=== PATIENT | male | born 1935 | race Caucasian/White ===

== ENCOUNTER 2021-12-31 14:14 | Observation (INO) | payer MEDICARE, SELFPAY ==
[2021-12-31] VITALS (7 sets, daily range): BP systolic 162–209; BP diastolic 66–94; PULSE 65–95; RESP 12–23; TEMP 35.7–36.9; O2SAT 95–98; BMI 25.4; BMI 25.7
--- NOTE | ~2021-12-31 | XR_ITS ---
EXAMINATION: XR CHEST CLINICAL INFORMATION: Cough. COMPARISON: 01/03/2018 chest radiographs. TECHNIQUE: Frontal view of the chest was obtained. FINDINGS: No significant abnormality is noted involving the heart, lungs, mediastinum, bony thorax or soft tissues. XR/XR chest 1V IMPRESSION: No acute cardiopulmonary process.
--- NOTE | ~2021-12-31 | CT_ITS ---
EXAMINATION: CT ANGIOGRAM NECK WITH CONTRAST CT ANGIOGRAM BRAIN WITH CONTRAST CLINICAL INFORMATION: Evaluate aphasia, possible stroke. Carotid stenosis. COMPARISON: Brain MRI 12/31/2021. TECHNIQUE: Test bolus sequences followed by intravenous administration 70 mL of Omnipaque 350. Helical imaging was performed in the axial plane from the thoracic inlet to the skull vertex. Delayed postcontrast imaging of the head was also performed. The data was processed at the electroencephalogram technologist workstation for generation of MIP sequences. Angled MIPs and volume rendered reformatted images were also generated at an offline 3D workstation under concurrent supervision. Stenoses are assessed in accordance with NASCET criteria unless otherwise indicated. This CT examination was performed using dose optimization techniques as appropriate, variously including the following: *Automated exposure control *Adjustment of mA and/or kV according to patient size (this includes techniques or standardized protocols for targeted exams where dose is matched to indication/reason for exam; i.e. extremities or head) *Use of iterative reconstruction technique FINDINGS: BRAIN: Redemonstrated global cerebral volume loss, chronic microangiopathy, and extensive chronic infarcts throughout the left cerebral hemisphere including the deep watershed zone.[There is no intracranial hemorrhage, hydrocephalus, extra-axial surface collection, midline shift, or other herniation pattern. Perez to white matter differentiation is diffusely maintained without evidence of an evolved acute territorial infarct. The basilar cisterns are preserved. No significant soft tissue abnormality. No acute osseous abnormality. The paranasal sinuses and the mastoid air cells are well aerated.] CERVICAL SOFT TISSUES AND LUNG APICES: There is multilevel cervical spondylosis. NECK CTA: [There is a classic 3 vessel configuration of the aortic arch. Proximal arch vessels are non-stenotic. The vertebral arteries are codominant. No significant ostial stenosis is visualized on either side. Both vertebral arteries are widely patent throughout their extracranial cervical course. Both common carotid arteries are normal in course and caliber.] There is atherosclerotic calcification involving the right carotid bifurcation that along with lipid rich atherosclerotic plaque results in a less than 50% stenosis of the proximal right internal carotid artery. Lipid rich and calcific atherosclerotic plaque results in a less than 50% stenosis of the proximal left internal carotid artery. There is a broad-based 4 mm penetrating atherosclerotic ulcer along the posterior medial aspect of the left carotid bulb. BRAIN CTA: Atherosclerotic calcification results in moderate stenoses of the intradural vertebral arteries bilaterally. Atherosclerotic calcification throughout the carotid siphons bilaterally without significant stenosis. Moderate to severe stenosis at the origin of one of the right MCA post bifurcation divisions. No focal flow-limiting stenosis nor discrete proximal large artery occlusion. No aneurysm. Timing of the contrast bolus allows assessment of the major dural venous sinuses, which all opacify normally] CT/CT angio head neck IMPRESSION: - No acute findings. Redemonstrated global cerebral volume loss, chronic microangiopathy, and extensive chronic infarcts throughout the left cerebral hemisphere including the deep watershed zone. - No acute arterial occlusions intracranially. - Moderate to severe stenosis at the origin of one of the right MCA post bifurcation divisions. - Lipid rich and calcific atherosclerotic plaque results in a less than 50% stenosis of the proximal left internal carotid artery. 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 - There is atherosclerotic calcification involving the right carotid bifurcation that along with lipid rich atherosclerotic plaque results in a less than 50% stenosis of the proximal right internal carotid artery. - Atherosclerotic calcification results in moderate stenoses of the intradural vertebral arteries bilaterally.
--- NOTE | ~2021-12-31 | MR_ITS ---
MRI OF THE BRAIN WITHOUT IV CONTRAST INDICATION: Broca's aphasia. COMPARISON: Head CT 12/31/2021. Brain MRI 01/03/2018. TECHNIQUE: Multiplanar multisequence MR imaging of the brain was obtained without IV contrast. FINDINGS: Progressive chronic infarcts throughout the left cerebral hemisphere including the deep watershed zone. There is background moderate chronic microangiopathy. There is no hydrocephalus, extra-axial surface collection, or herniation. The major flow voids at the skull base are preserved. There is no acute infarct on diffusion-weighted imaging. There is a focus of chronic hemosiderin staining within the left hebert. No adjacent edema to suggest acute hemorrhage. There is also chronic hemosiderin staining within the left occipital lobe. The midline structures are normal. The cerebellar tonsils are normally positioned. The cerebellum and brainstem are normal. The craniocervical junction is normal. Osseous marrow signal intensity is homogenous. The visualized soft tissues are unremarkable. MR/MR head/brain wo con IMPRESSION: - No acute intracranial findings. No acute infarcts. - Progressive chronic infarcts throughout the left cerebral hemisphere including the deep watershed zone. There is background moderate chronic microangiopathy. - There is a focus of chronic hemosiderin staining within the left hebert. No adjacent edema to suggest acute hemorrhage. There is also chronic hemosiderin staining within the left occipital lobe.
--- NOTE | ~2021-12-31 | CT_ITS ---
EXAMINATION: CT HEAD WITHOUT CONTRAST (STROKE PROTOCOL) CLINICAL INFORMATION: Stroke protocol. Slurred speech COMPARISON: Previous head CT and brain MRI December 2018 TECHNIQUE: Contiguous axial imaging was performed from the skull base to vertex without intravenous administration of contrast. This CT examination was performed using dose optimization techniques as appropriate, variously including the following: *Automated exposure control *Adjustment of mA and/or kV according to patient size (this includes techniques or standardized protocols for targeted exams where dose is matched to indication/reason for exam; i.e. extremities or head) *Use of iterative reconstruction technique DLP: 860 mGy-cm FINDINGS: There is no evidence of an extra-axial collection. There is no evidence of intra-axial or extra-axial hemorrhage. The ventricles and extra-axial CSF spaces are prominent. There is nonspecific periventricular white matter disease. There are multiple subcortical and periventricular white matter infarcts in the left posterior parietal, occipital and frontal lobes. These are new in the interval from December 2017 are indeterminate age. There may be left external capsule lacunar infarcts probably unchanged. No mass or mass effect is seen. No skull fracture is seen. There is evidence of atherosclerotic disease. There are inflammatory changes in the maxillary sinuses. CT/CT head for stroke IMPRESSION: Generalized atrophy and nonspecific periventricular white matter disease. Multiple age indeterminate left-sided infarcts in the left posterior parietal, occipital and frontal lobes. This critical result was discussed with Dr. Cannon at 14 55 hours on 12/31/2021. It was ascertained that the content and urgency of the report was understood at the time of direct communication.
--- NOTE | 2021-12-31 14:37 | ECG_ITS ---
Test Reason : ?STROKE Blood Pressure : / mmHG Vent. Rate : 083 BPM Atrial Rate : 083 BPM P-R Int : 178 ms QRS Dur : 148 ms QT Int : 408 ms P-R-T Axes : 030 060 003 degrees QTc Int : 479 ms Normal sinus rhythm Right bundle branch block Abnormal ECG When compared to the previous EKG of No significant changes seen Referred By: Alvina Cannon Electronically Signed By:Keyon Lee
[2021-12-31 15:01] LABS: Glucose, Whole Blood 184 mg/dL (60-115)
[2021-12-31 15:07] LABS: Basophils Percent Auto 0.2 % (0-2); Eosinophils Percent Auto 0.2 % (0-4); Hematocrit 41.1 % (42.0-52.0); Hemoglobin 13.4 g/dl (14.0-18.0); Imm Gran Abs Auto 0.08 X10*3/uL (0.00-0.03); Imm Gran Pct Auto 1.9 % (0.0-0.4); Lymphocytes Absolute Auto 1.5 X10*3/uL (1.2-4.9); Lymphocytes Percent Auto 33.8 % (20-40); MANUAL DIFF FLAG SCAN; Mean Corpuscular HGB Conc 32.6 g/dl (31.0-36.0); Mean Corpuscular Hemoglobin 33.3 pg (27.0-33.0); Mean Corpuscular Volume 102.2 fL (80.0-98.0); Monocytes Percent Auto 23.6 % (2-11); Neutrophils Absolute Auto 1.7 x10*3/uL (2.0-8.3); Neutrophils Percent Auto 40.3 % (45-73); Platelet Count 105 X10*3/uL (160-400); Red Blood Count 4.02 X10*6/uL (4.60-5.80); Red Cell Distribution Width 11.9 % (11.0-16.0); SCAN SMEAR FLAG 1; White Blood Count 4.3 X10*3/uL (4.8-10.8)
[2021-12-31 15:08] LABS: Prothrombin Time Whole Bld POC 11.7 sec (11.1-13.5)
[2021-12-31 15:19] LABS: Anion Gap 14 (12-20); Blood Urea Nitrogen 17 mg/dL (9-16); Calcium 9.9 mg/dL (8.4-10.2); Carbon Dioxide 28 mmol/L (22-29); Chloride 108 mmol/L (96-108); Creatinine Clr Calc Pharmacy 67.2; Estimated Glomerular Filt Rate > 60; Glucose Random 161 mg/dL (60-115); Potassium 4.6 mmol/L (3.3-5.1); Sodium 145 mmol/L (135-145)
[2021-12-31 15:27] LABS: SLIDE REVIEW VERIFIED; Troponin-I High Sensitivity 11.8 ng/L (<3.5-35.0)
--- NOTE | 2021-12-31 15:32 | ED.NEUROSD ---
HPI - Neuro Symptoms/Deficit General Chief Complaint: Neuro Symptoms/Deficit Stated Complaint: slurred speech/ possible stroke Time Seen by Provider: 12/31/21 14:37 History of Present Illness HPI Narrative: Patient is a 86-year-old male presents today at approximately 12:30 with having sudden onset of difficulty finding the right word. Patient denies any fever chills. No focal weakness no changes in vision. No nausea no vomiting. Positive history of [place] in the past. Positive history of hypertension. Not on blood thinners. Not on Coumadin on Xarelto non Eliquis. Patient stated that his thinking was not quite right for peer to time. Sent into the emergency department for further evaluation. Related Data Home Medications Medication Instructions Recorded Confirmed clopidogrel 75 mg tablet 1 tab PO DAILY 12/31/21 lisinopril 5 mg tablet tab PO 12/31/21 simvastatin 40 mg tablet 1 tab PO BEDTIME 12/31/21 12/31/21 trazodone 50 mg tablet 2 tab PO BEDTIME PRN 12/31/21 Allergies Allergy/AdvReac Type Severity Reaction Status Date / Time No Known Allergies Allergy Unverified 05/14/20 19:29 [No Known Allergies*] Review of Systems Review of Systems: No fever no chills no chest pain or shortness of breath no nausea no vomiting Yes all other systems are reviewed and are negative PMFSH Past Medical History Attestation statement: The following information was validated with the patient. Social History Social History Alcohol intake: current Alcohol intake frequency: 0-2 drinks per day Alcohol type: wine and hard liquor Patient Tobacco Use Status: Never used Tobacco Use of substances other than those prescribed or required for medical reasons: No Advance Directives: No Advance Directives Information Provided: No Physical Exam Vital Signs: Vital Signs: Last Vital Signs Temp 98.5 F 12/31/21 15: Pulse 81 12/31/21 15:26 Resp 23 H 12/31/21 15:26 BP 168/77 H 12/31/21 15:26 Pulse Ox 95 12/31/21 15:26 BMI result Body Mass Index 25.7 Appearance: Alert. Oriented X3. No acute distress. Eyes: Pupils equal, round and reactive to light. ENT: Pharynx normal. Neck: Normal inspection. Neck supple. No lymph nodes noted. No crepitus CVS: Normal heart rate and rhythm. Pulses normal. Normal S1 and S2 Respiratory: No respiratory distress. Breath sounds normal. No Wheezing. No rales Abdomen: Soft and nontender. No rigidity. No distention. good BS x4 Skin: Skin warm and dry. Normal skin color. Normal skin turgor. Extremities: No lower extremity edema. Neurovascular intact to all extremities. No Lacerations. No Rash Neuro: Oriented X 3. No motor deficit. No sensory deficit. Moving all extermities. No slurred speech MDM - Neuro Symptoms/Deficit MDM Narrative Medical decision making narrative: CT scan of the head was grossly negative for any acute evidence of bleeding. Electrolytes unremarkable. Patient presented today with having dysarthria. The symptoms seems have persisted for last 2-1/2 hours. There is no gross visual changes. Patient NIH stroke scale was 0. Ambulated with a normal gait. Discussed with neurology agreed patient's deficit not roberto a CTA at this time. Patient to be admitted aspirin started. In stable condition. Lab Data Attestation: I reviewed the patient's lab results. Result diagrams: 12/31/21 15:02 12/31/21 15:02 Labs: Lab Results 12/31/21 12/31/21 12/31/21 Range/Units 14:45 14:46 15:02 WBC 4.3 L (4.8-10.8) X10*3/uL RBC 4.02 L (4.60-5.80) X10*6/uL Hgb 13.4 L (14.0-18.0) g/dl Hct 41.1 L (42.0-52.0) % MCV 102.2 H (80.0-98.0) fL MCH 33.3 H (27.0-33.0) pg MCHC 32.6 (31.0-36.0) g/dl RDW 11.9 (11.0-16.0) % Plt Count 105 L (160-400) X10*3/uL MPV 13.0 H (9.4-12.4) fL Immature Gran % (Auto) 1.9 H (0.0-0.4) % Neut % (Auto) 40.3 L (45-73) % Lymph % (Auto) 33.8 (20-40) % [place] % (Auto) 23.6 H (2-11) % Eos % (Auto) 0.2 (0-4) % Baso % (Auto) 0.2 (0-2) % Lymph # (Auto) 1.5 (1.2-4.9) X10*3/uL [place] # (Auto) 1.0 (0.1-1.2) X10*3/uL Eos # (Auto) 0.0 (0.0-0.4) X10*3/uL Baso # (Auto) 0.0 (0.0-0.2) X10*3/uL Abs Immat Gran (auto) 0.08 H (0.00-0.03) X10*3/uL Absolute Neuts (auto) 1.7 L (2.0-8.3) x10*3/uL Absolute Nucleated RBC 0.000 (0.0-0.012) X10*3/uL Nucleated RBC % (auto) 0.0 (0.0-0.2) /100WBC Smear Tech's Comments VERIFIED PT (9.9-13.0) SEC Whole Blood PT 11.7 (11.1-13.5) sec INR (0.9-1.1) Whole Blood INR 1.0 (0.9-1.1) Sodium (135-145) mmol/L Potassium (3.3-5.1) mmol/L Chloride (96-108) mmol/L Carbon Dioxide (22-29) mmol/L Anion Gap (12-20) BUN (9-16) mg/dL Creatinine (0.5-1.4) mg/dL Estim Creat Clear Calc Estimated GFR POC Glucose 184 H (60-115) mg/dL Random Glucose (60-115) mg/dL Calcium (8.4-10.2) mg/dL Troponin I High Sens (<3.5-35.0) ng/L Hold Red Top 12/31/21 12/31/21 12/31/21 Range/Units 15:02 15:02 15:02 WBC (4.8-10.8) X10*3/uL RBC (4.60-5.80) X10*6/uL Hgb (14.0-18.0) g/dl Hct (42.0-52.0) % MCV (80.0-98.0) fL MCH (27.0-33.0) pg MCHC (31.0-36.0) g/dl RDW (11.0-16.0) % Plt Count (160-400) X10*3/uL MPV (9.4-12.4) fL Immature Gran % (Auto) (0.0-0.4) % Neut % (Auto) (45-73) % Lymph % (Auto) (20-40) % [place] % (Auto) (2-11) % Eos % (Auto) (0-4) % Baso % (Auto) (0-2) % Lymph # (Auto) (1.2-4.9) X10*3/uL [place] # (Auto) (0.1-1.2) X10*3/uL Eos # (Auto) (0.0-0.4) X10*3/uL Baso # (Auto) (0.0-0.2) X10*3/uL Abs Immat Gran (auto) (0.00-0.03) X10*3/uL Absolute Neuts (auto) (2.0-8.3) x10*3/uL Absolute Nucleated RBC (0.0-0.012) X10*3/uL Nucleated RBC % (auto) (0.0-0.2) /100WBC Smear Tech's Comments PT 11.7 (9.9-13.0) SEC Whole Blood PT (11.1-13.5) sec INR 1.0 (0.9-1.1) Whole Blood INR (0.9-1.1) Sodium 145 (135-145) mmol/L Potassium 4.6 (3.3-5.1) mmol/L Chloride 108 (96-108) mmol/L Carbon Dioxide 28 (22-29) mmol/L Anion Gap 14 (12-20) BUN 17 H (9-16) mg/dL Creatinine 0.84 (0.5-1.4) mg/dL Estim Creat Clear Calc 67.2 Estimated GFR > 60 POC Glucose (60-115) mg/dL Random Glucose 161 H (60-115) mg/dL Calcium 9.9 (8.4-10.2) mg/dL Troponin I High Sens 11.8 (<3.5-35.0) ng/L Hold Red Top 12/31/21 Range/Units 15:02 WBC (4.8-10.8) X10*3/uL RBC (4.60-5.80) X10*6/uL Hgb (14.0-18.0) g/dl Hct (42.0-52.0) % MCV (80.0-98.0) fL MCH (27.0-33.0) pg MCHC (31.0-36.0) g/dl RDW (11.0-16.0) % Plt Count (160-400) X10*3/uL MPV (9.4-12.4) fL Immature Gran % (Auto) (0.0-0.4) % Neut % (Auto) (45-73) % Lymph % (Auto) (20-40) % [place] % (Auto) (2-11) % Eos % (Auto) (0-4) % Baso % (Auto) (0-2) % Lymph # (Auto) (1.2-4.9) X10*3/uL [place] # (Auto) (0.1-1.2) X10*3/uL Eos # (Auto) (0.0-0.4) X10*3/uL Baso # (Auto) (0.0-0.2) X10*3/uL Abs Immat Gran (auto) (0.00-0.03) X10*3/uL Absolute Neuts (auto) (2.0-8.3) x10*3/uL Absolute Nucleated RBC (0.0-0.012) X10*3/uL Nucleated RBC % (auto) (0.0-0.2) /100WBC Smear Tech's Comments PT (9.9-13.0) SEC Whole Blood PT (11.1-13.5) sec INR (0.9-1.1) Whole Blood INR (0.9-1.1) Sodium (135-145) mmol/L Potassium (3.3-5.1) mmol/L Chloride (96-108) mmol/L Carbon Dioxide (22-29) mmol/L Anion Gap (12-20) BUN (9-16) mg/dL Creatinine (0.5-1.4) mg/dL Estim Creat Clear Calc Estimated GFR POC Glucose (60-115) mg/dL Random Glucose (60-115) mg/dL Calcium (8.4-10.2) mg/dL Troponin I High Sens (<3.5-35.0) ng/L Hold Red Top See Note NIH Stroke Scale Internal: 24 hours post onset of symptoms within 20 min Time: 15:25 Level of Consciousness: Alert Level of Consciousness Questions: Answers both questions correctly Level of Consciousness Commands: Performs both tasks correctly Best Gaze: Normal Visual: No visual loss Facial Palsy: Normal Motor Arm (Right): No drift Motor Arm (Left): No drift Motor Leg (Right): No drift Motor Leg (Left): No drift Limb Ataxia: Absent Sensory: Normal Best Language: No aphasia Dysarthia: Normal Extinction and Inattention: No abnormality Score: 0 Discharge Plan Discharge Clinical Impression: Cerebrovascular accident Patient Disposition: Admitted As Inpatient Prescriptions: No Action trazodone 50 mg tablet 2 tab PO BEDTIME PRN (Reason: Sleep) 0RF clopidogrel 75 mg tablet 1 tab PO DAILY 0RF simvastatin 40 mg tablet 1 tab PO BEDTIME 0RF lisinopril 5 mg tablet PO 0RF
[2021-12-31 15:33] LABS: Prothrombin Time 11.7 SEC (9.9-13.0)
[2021-12-31 15:39] LABS: Stroke Lab Use COMPLETE
--- NOTE | 2021-12-31 15:41 | PC.NURSE ---
Patient's brother Kota would like to be called with update [phone]
[2021-12-31] MEDS: Aspirin 81 MG TAB.CHEW 324 MG PO (15:46)
--- NOTE | 2021-12-31 15:53 | P.HPHOSP_ITS ---
History of Present Illness Date of Service: 12/31/21 Chief Complaint: Speech problem An 86 years old male with PMH of hypertension, CAD, history of stroke who presents to the hospital complaining of difficulty speech this afternoon. The patient reported taking up in the morning having breakfast which he had diff iculties naming what he had at that time. Noticed around 12 30 sudden onset of difficulty finding the right word and understanding some words. The patient denies fever, chills, weakness, change in vision, dizziness, gait problem or weakness in any part of his body. He was evaluated by emergency for possible stroke but his NIH score of less than 5. ER provider Decided not to give any tPA after counseling with neurologist on-call. Admitted for further evaluation and treatment. Review of Systems Review of Systems: No fever, chills or weakness No chest pain, palpitation No shortness of breath or coughing No abdominal pain, nausea or vomiting No urinary symptoms No any rash or wounds aphasia PMFSH Medical History (Updated 12/31/21 @ 16:13 by Rosenda Diaz MD) CAD (coronary artery disease) History of stroke HTN (hypertension) Social History Alcohol intake: current Alcohol intake frequency: 0-2 drinks per day Alcohol type: wine and hard liquor Patient Tobacco Use Status: Never used Tobacco Use of substances other than those prescribed or required for medical reasons: No Advance Directives: No Advance Directives Information Provided: No Meds Allergies Allergy/AdvReac Type Severity Reaction Status Date / Time No Known Allergies Allergy Unverified 05/14/20 19:29 [No Known Allergies*] Active Medications: Current Medications Acetaminophen (Acetaminophen 325 Mg Tablet) 650 mg PO Q6H PRN PRN Reason: Pain, Mild (Pain Scale 1-3) Enoxaparin Sodium (Enoxaparin Sodium 40 Mg/0.4 Ml Syringe) 40 mg SUBCUT Q24H ZANE Ondansetron HCl (Ondansetron Hcl 4 Mg/2 Ml Vial) 4 mg IVPUSH Q8H PRN PRN Reason: Nausea and Vomiting Pharmacy Consult (Consult Rx Perform Med Rec) 1 each MISCELLANE ONCE PRN PRN Reason: Consult order Sodium Chloride (0.9 % Sodium Chloride Flush 3 Ml Syringe) 3 ml IVFLUSH QSHIFT [facility] Home Medications Medication Instructions Recorded Confirmed Last Taken Type acetaminophen 325 mg tablet 650 mg PO Q6H PRN 12/31/21 12/31/21 Unknown History cholecalciferol (vitamin D3) 25 25 mcg PO DAILY 12/31/21 12/31/21 12/31/21 History mcg (1,000 unit) tablet clopidogrel 75 mg tablet 1 tab PO BEDTIME 12/31/21 12/31/21 12/30/21 History lisinopril 5 mg tablet 1 tab PO DAILY 12/31/21 12/31/21 12/30/21 History multivitamin 1 tab PO DAILY 12/31/21 12/31/21 12/31/21 History simvastatin 40 mg tablet 1 tab PO BEDTIME 12/31/21 12/31/21 12/30/21 History trazodone 50 mg tablet 0.5 - 1 tab PO BEDTIME PRN 12/31/21 12/31/21 Unknown History Physical Exam Vital Signs and Narrative: Vital Signs: Last Vital Signs Temp 98.5 F 12/31/21 15:26 Pulse 81 12/31/21 15:30 Resp 12 12/31/21 15:30 BP 171/71 H 12/31/21 15:30 Pulse Ox 96 12/31/21 15:30 BMI result Body Mass Index 25.7 Const: Other: Constitutional : Alert, oriented, mildly stressed out Neck : Normal inspection, Supple Cardiovascular : RRR, no JVP, no lower extremity edema Respiratory : fair bilateral air entry, no crackles, wheezes or rhonchi Gastrointestinal: soft, lax, Normal bowel sounds, Non tender Skin : Warm, Dry Neurological : Alert & oriented x3, No focal deficit , CN 2-12 within normal, difficulties finding some words but overall able to speak with fluency and good content Results Labs CBC and Chem 7: 12/31/21 15:02 12/31/21 15:02 Labs: Laboratory Results - last 24 hr 12/31/21 12/31/21 12/31/21 14:45 14:46 15:02 MCV 102.2 H MCH 33.3 H MCHC 32.6 RDW 11.9 Plt Count 105 L MPV 13.0 H Immature Gran % (Auto) 1.9 H Neut % (Auto) 40.3 L Lymph % (Auto) 33.8 [place] % (Auto) 23.6 H Eos % (Auto) 0.2 Baso % (Auto) 0.2 Lymph # (Auto) 1.5 [place] # (Auto) 1.0 Eos # (Auto) 0.0 Baso # (Auto) 0.0 Abs Immat Gran (auto) 0.08 H Absolute Neuts (auto) 1.7 L Absolute Nucleated RBC 0.000 Nucleated RBC % (auto) 0.0 Smear Tech's Comments VERIFIED PT Whole Blood PT 11.7 INR Whole Blood INR 1.0 Anion Gap Estim Creat Clear Calc Estimated GFR POC Glucose 184 H Random Glucose Calcium Troponin I High Sens Hold Red Top 12/31/21 12/31/21 12/31/21 15:02 15:02 15:02 MCV MCH MCHC RDW Plt Count MPV Immature Gran % (Auto) Neut % (Auto) Lymph % (Auto) [place] % (Auto) Eos % (Auto) Baso % (Auto) Lymph # (Auto) [place] # (Auto) Eos # (Auto) Baso # (Auto) Abs Immat Gran (auto) Absolute Neuts (auto) Absolute Nucleated RBC Nucleated RBC % (auto) Smear Tech's Comments PT 11.7 Whole Blood PT INR 1.0 Whole Blood INR Anion Gap 14 Estim Creat Clear Calc 67.2 Estimated GFR > 60 POC Glucose Random Glucose 161 H Calcium 9.9 Troponin I High Sens 11.8 Hold Red Top 12/31/21 15:02 MCV MCH MCHC RDW Plt Count MPV Immature Gran % (Auto) Neut % (Auto) Lymph % (Auto) [place] % (Auto) Eos % (Auto) Baso % (Auto) Lymph # (Auto) [place] # (Auto) Eos # (Auto) Baso # (Auto) Abs Immat Gran (auto) Absolute Neuts (auto) Absolute Nucleated RBC Nucleated RBC % (auto) Smear Tech's Comments PT Whole Blood PT INR Whole Blood INR Anion Gap Estim Creat Clear Calc Estimated GFR POC Glucose Random Glucose Calcium Troponin I High Sens Hold Red Top See Note Imaging Radiologist's Impressions: Impressions Head CT 12/31/21 14:42 IMPRESSION: Generalized atrophy and nonspecific periventricular white matter disease. Multiple age indeterminate left-sided infarcts in the left posterior parietal, occipital and frontal lobes. This critical result was discussed with Dr. Cannon at 14 55 hours on 12/31/2021. It was ascertained that the content and urgency of the report was understood at the time of direct communication. Chest X-Ray 12/31/21 15:17 IMPRESSION: No acute cardiopulmonary process. Assessment and Plan (1) Expressive aphasia: Status: Acute Plan An 86 years old male with PMH of hypertension, CAD, history of stroke who presents to the hospital complaining of difficulty speech this afternoon. Expressive aphasia Could be secondary to stroke VS TIA VS seizure CT negative for any acute findings To do CTA to assess reported stenosis in the carotid in 2019 Check MRI for stroke Received full-dose ASA in the emergency next [place] continue with atorvastatin and home does Plavix Neuro checks Get Neurology evaluation Speech and PT therapy Might need an EEG or a trial of Keppra. CAD continue statin and Plavix HTN Will allow permissive hypertension for now continue home dose lisinopril DVT PPX Lovenox Quality Stroke Does the patient have a stroke diagnosis?: No VTE Prior VTE?: No VTE Risk Level:: Medical - moderate - high VTE Device Contraindication: Treatment Not Indicated VTE Drug Contraindication: N/A - Med Ordered
--- NOTE | 2021-12-31 15:59 | PHA.MEDREC ---
Pharmacy Consult ? Medication Reconciliation Pharmacy has completed the medication reconciliation. Pt had written list in [employer], [facility] claim history. Renata ConnollyD
--- NOTE | 2021-12-31 17:19 | MHC.SLORD ---
Speech Language Pathology Order Status: Patient seen for language screening at bedside in ED. 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 Strongly recommend speech therapy during inpatient stay M-F and at next level of care.
[2021-12-31 17:31] LABS: COVID-19 Test Positive (Negative); IDNOW Serial# 16C4AD1C
[2021-12-31 20:00] LABS: Glucose, Whole Blood 139 mg/dL (60-115)
[2021-12-31] MEDS: iohexoL 350 MG/ML 100 ML INFUS..BTL IV (20:29)
[2021-12-31] MEDS: hydrALAZINE HCl 20 MG/ML VIAL 5 MG IVPUSH (20:49)
[2021-12-31] MEDS: Enoxaparin Sodium 40 MG/0.4 ML SYRINGE SUBCUT (20:50)
[2021-12-31] MEDS: Atorvastatin Calcium 80 MG TABLET PO (20:51)
[2021-12-31] MEDS: Clopidogrel Bisulfate 75 MG TABLET PO (20:52)
[2021-12-31] MEDS: 0.9 % Sodium Chloride Flush 3 ML SYRINGE IVFLUSH (20:52)
[2022-01-01] VITALS: BP 199/89; PULSE 66; RESP 20; TEMP 37; O2SAT 98
[2022-01-01] MEDS: hydrALAZINE HCl 20 MG/ML VIAL 5 MG IVPUSH (01:36)
[2022-01-01 03:30] VITALS: BP 157/74; PULSE 65; RESP 16; TEMP 37.3; O2SAT 96
[2022-01-01 07:15] LABS: Anion Gap 13 (12-20); Blood Urea Nitrogen 11 mg/dL (9-16); Carbon Dioxide 23 mmol/L (22-29); Chloride 105 mmol/L (96-108); Creatinine Clr Calc Pharmacy 79.5; Estimated Glomerular Filt Rate > 60; Glucose Random 136 mg/dL (60-115); Potassium 4.1 mmol/L (3.3-5.1); Sodium 137 mmol/L (135-145)
[2022-01-01 07:49] VITALS: BP 189/83; PULSE 64; RESP 20; TEMP 36.9; O2SAT 96
[2022-01-01 09:31] LABS: Cholesterol 127 mg/dL; HDL Cholesterol 48 mg/dL; LDL Cholesterol Calculated 63 mg/dl; Triglycerides 80 mg/dL
[2022-01-01] MEDS: 0.9 % Sodium Chloride Flush 3 ML SYRINGE IVFLUSH (09:52)
[2022-01-01] MEDS: Cholecalciferol (Vitamin D3) 25 MCG TABLET PO (10:29)
[2022-01-01] MEDS: Multivitamin TABLET 1 TAB PO (10:30)
[2022-01-01] MEDS: Aspirin Enteric Coated 81 MG TABLET.DR PO (10:30)
[2022-01-01] MEDS: amLODIPine Besylate 5 MG TABLET PO (10:30)
[2022-01-01] MEDS: lisinopriL 10 MG TABLET PO (10:30)
[2022-01-01 11:47] VITALS: BP 183/82; PULSE 67; RESP 20; TEMP 36.4; O2SAT 99
[2022-01-01] MEDS: levETIRAcetam 250 MG TABLET PO (13:35)
--- NOTE | 2022-01-01 14:08 | PM.NEUROCN ---
History of Present Illness Data of Consult Service Date: 01/01/22 Primary Care Provider: Unknown Physician HPI Reason for consult: Aphasia and confusion 86 years old man with past medical history of large left middle cerebral artery infarct in 2018 that was treated with intravenous tPA. Even then he had significant encephalomalacia and left middle cerebral artery territory. No obvious embolic source was noted and he was being treated with Plavix. This time he was here with new complaint of difficulty speaking. He said that his speech was gibberish or like word salad but also he was quite confused. This state lasted for few hours. In emergency room he was noted to have mild such symptoms but because of relatively mild nature of symptoms intravenous tPA was not considered. Now he was back to baseline. There was no headache. Review of Systems Review of Systems: No recent cold or flu-like illness. ON LICENSE OF [facility] Past Medical History Medical History CAD (coronary artery disease) History of stroke HTN (hypertension) Social History Social History Alcohol intake: current Alcohol intake frequency: 0-2 drinks per day Alcohol type: wine and hard liquor Patient Tobacco Use Status: Never used Tobacco Meds Allergies Allergy/AdvReac Type Severity Reaction Status Date / Time No Known Allergies Allergy Unverified 05/14/20 19:29 [No Known Allergies*] Active Medications: Current Medications Acetaminophen (Acetaminophen 325 Mg Tablet) 650 mg PO Q6H PRN PRN Reason: Pain, Mild (Pain Scale 1-3) Amlodipine Besylate (Amlodipine Besylate 5 Mg Tablet) 5 mg PO DAILY [facility]; Protocol Last Admin: 01/01/22 10:30 Dose: 5 mg Documented by: Aspirin (Aspirin Enteric Coated 81 Mg Tablet.) 81 mg PO DAILY [facility] Last Admin: 01/01/22 10:30 Dose: 81 mg Documented by: Atorvastatin Calcium (Atorvastatin Calcium 80 Mg Tablet) 80 mg PO BEDTIME ZANE Last Admin: 12/31/21 20:51 Dose: 80 mg Documented by: Enoxaparin Sodium (Enoxaparin Sodium 40 Mg/0.4 Ml Syringe) 40 mg SUBCUT Q24H ZANE Last Admin: 12/31/21 20:50 Dose: 40 mg Documented by: Levetiracetam (Levetiracetam 250 Mg Tablet) 250 mg PO BID [facility] Last Admin: 01/01/22 13:35 Dose: 250 mg Documented by: Lisinopril (Lisinopril 10 Mg Tablet) 10 mg PO DAILY [facility]; Protocol Last Admin: 01/01/22 10:30 Dose: 10 mg Documented by: Multivitamins/Vitamin C (Multivitamin Tablet) 1 tab PO DAILY [facility] Last Admin: 01/01/22 10:30 Dose: 1 tab Documented by: Ondansetron HCl (Ondansetron Hcl 4 Mg/2 Ml Vial) 4 mg IVPUSH Q8H PRN PRN Reason: Nausea and Vomiting Pharmacy Consult (Consult Rx Perform Med Rec) 1 each MISCELLANE ONCE PRN PRN Reason: Consult order Sodium Chloride (0.9 % Sodium Chloride Flush 3 Ml Syringe) 3 ml IVFLUSH QSHIFT [facility] Last Admin: 01/01/22 09:52 Dose: 3 ml Documented by: Vitamin D (Cholecalciferol (Vitamin D3) 25 Mcg Tablet) 25 mcg PO DAILY [facility] Last Admin: 01/01/22 10:29 Dose: 25 mcg Documented by: Home Medications Medication Instructions Recorded Confirmed Last Taken Type acetaminophen 325 mg tablet 650 mg PO Q6H PRN 12/31/21 12/31/21 Unknown History cholecalciferol (vitamin D3) 25 25 mcg PO DAILY 12/31/21 12/31/21 12/31/21 History mcg (1,000 unit) tablet clopidogrel 75 mg tablet 1 tab PO BEDTIME 12/31/21 12/31/21 12/30/21 History lisinopril 5 mg tablet 1 tab PO DAILY 12/31/21 12/31/21 12/30/21 History multivitamin 1 tab PO DAILY 12/31/21 12/31/21 12/31/21 History simvastatin 40 mg tablet 1 tab PO BEDTIME 12/31/21 12/31/21 12/30/21 History trazodone 50 mg tablet 0.5 - 1 tab PO BEDTIME PRN 12/31/21 12/31/21 Unknown History Physical Exam Vital Signs: Vital Signs: Last Vital Signs Temp 97.6 F 01/01/22 11:47 Pulse 67 01/01/22 11:47 Resp 20 01/01/22 11:47 BP 183/82 H 01/01/22 11:47 Pulse Ox 99 01/01/22 11:47 BMI result Body Mass Index 25.7 Neuro: Other: He was alert and awake with normal spontaneity of speech fluency comprehension and affect. He was able to name and repeat. Face was symmetrical. There was no pronator drift. Khurer-gl-ozbe testing was normal. Visual higginbotham are full. Affect was normal. He was COVID positive and exam was limited. Results Labs CBC & Chem 7: 12/31/21 15:02 01/01/22 06:42 Labs: Short CBC 12/31/21 Range/Units 15:02 WBC 4.3 L (4.8-10.8) X10*3/uL Hgb 13.4 L (14.0-18.0) g/dl Hct 41.1 L (42.0-52.0) % Plt Count 105 L (160-400) X10*3/uL BMP 12/31/21 01/01/22 15:02 06:42 Sodium 145 137 Potassium 4.6 4.1 Chloride 108 105 Carbon Dioxide 28 23 BUN 17 H 11 Creatinine 0.84 0.71 Calcium 9.9 9.0 D MRI of brain did not reveal any acute lesions. Large area of left middle cerebral artery chronic ischemic infarction was noted with moderate to severe microvascular ischemic changes and moderate to severe diffuse atrophy. Assessment and Plan (1) Expressive aphasia: Status: Acute Overall clinical impression is suggestive of either a stroke or seizure disorder. Despite the fact that his symptoms lasted many hours, no acute lesion was noted on MRI. I suggest to obtain an EEG and continue Plavix at this time. Procedures Date of Service Date of Service: 01/01/22
--- NOTE | 2022-01-01 15:26 | PM.DS ---
DS: Providers Provider Date of Service: 01/01/22 Date of admission: 12/31/21 15:48 Primary care physician: Unknown Physician Consults: 12/31/21 15:43 Consult to Neurology Routine Consulting Provider: [facility] Reason for consultation: expressive aphasia for your kind eval DS: Diagnosis Discharge Diagnosis (1) Anomic aphasia: Status: Acute (2) Cerebrovascular accident: Status: Acute (3) HTN (hypertension): Status: Acute DS: Summary Hospital Course Hospital Course: Admission note HPI An 86 years old male with PMH of hypertension, CAD, history of stroke who presents to the hospital complaining of difficulty speech this afternoon.? The patient reported taking up in the morning having breakfast which he had difficulties naming what he had at that time.? Noticed around 12 30 sudden onset of difficulty finding the right word and understanding some words.? The patient denies fever, chills, weakness, change in vision, dizziness, gait problem or weakness in any part of his body. He was evaluated by emergency for possible stroke but his NIH score of less than 5.? ER provider Decided not to give any tPA after counseling with neurologist on-call.? Admitted for further evaluation and treatment. Hospital course The patient was admitted for evaluation of difficulty speaking. Diagnosed as anomic aphasia. CT head, CTA and MRI were all negative for any acute findings. MRI does showed an evidence of extensive progressive left hemisphere microangiopathy. Evaluated by neurologist who recommended to continue Plavix and to follow-up as outpatient for EEG to rule out possible seizure activity. The patient received full dose of aspirin at the day of admission with changing his cholesterol medication to atorvastatin. Seen by speech and physical therapy. Patient was noted to have significantly elevated blood pressure readings that were left mildly elevated to allow permissive hypertension. Started on amlodipine and higher dose of lisinopril for better control of blood pressures. To follow-up with Neurology as outpatient, Dr. Murillo, call the office for an appointment. Start amlodipine 5 mg daily Increase lisinopril to 10 mg daily Monitor your blood pressure at home with to readings a day for the next week. Review readings with PCP for further adjustments. To repeat blood work next week. Time Spent with Patient Time attestation: Total time spent providing and/or coordinating discharge services: Discharge coordination time: Greater than 30 minutes Quality: Safe Use of Opioids Does Pt have an Active Cancer Diagnosis on the Problem List?: No Quality: Stroke Does the patient have a stroke diagnosis?: No Physical Exam Vital Signs: Vital Signs: Last Vital Signs Temp 97.6 F 01/01/22 11:47 Pulse 67 01/01/22 11:47 Resp 20 01/01/22 11:47 BP 183/82 H 01/01/22 11:47 Pulse Ox 99 01/01/22 11:47 BMI result Body Mass Index 25.7 Const: Other: Constitutional : Alert, oriented, mildly stressed out Neck : Normal inspection, Supple Cardiovascular : RRR, no JVP, no lower extremity edema Respiratory : fair bilateral air entry, no crackles, wheezes or rhonchi Gastrointestinal: soft, lax, Normal bowel sounds, Non tender Skin : Warm, Dry Neurological : Alert & oriented x3, No focal deficit , CN 2-12 within normal, able to speak with fluency and good content with no problems with repetition or naming DS: Data Data Completed and Pending Labs on day of discharge: Laboratory Results - last 24 hr 12/31/21 12/31/21 12/31/21 15:02 15:02 15:02 WBC 4.3 L RBC 4.02 L Hgb 13.4 L Hct 41.1 L MCV 102.2 H MCH 33.3 H MCHC 32.6 RDW 11.9 Plt Count 105 L MPV 13.0 H Immature Gran % (Auto) 1.9 H Neut % (Auto) 40.3 L Lymph % (Auto) 33.8 Chester % (Auto) 23.6 H Eos % (Auto) 0.2 Baso % (Auto) 0.2 Lymph # (Auto) 1.5 Chester # (Auto) 1.0 Eos # (Auto) 0.0 Baso # (Auto) 0.0 Abs Immat Gran (auto) 0.08 H Absolute Neuts (auto) 1.7 L Absolute Nucleated RBC 0.000 Nucleated RBC % (auto) 0.0 Smear Tech's Comments VERIFIED PT 11.7 INR 1.0 Sodium Potassium Chloride Carbon Dioxide Anion Gap BUN Creatinine Estim Creat Clear Calc Estimated GFR POC Glucose Random Glucose Calcium Troponin I High Sens 11.8 Triglycerides Cholesterol LDL Cholesterol, Calc HDL Cholesterol COVID-19 ([facility]) COVID-19 Clin Com 12/31/21 12/31/21 01/01/22 17:17 19:56 06:42 WBC RBC Hgb Hct MCV MCH MCHC RDW Plt Count MPV Immature Gran % (Auto) Neut % (Auto) Lymph % (Auto) Chester % (Auto) Eos % (Auto) Baso % (Auto) Lymph # (Auto) Chester # (Auto) Eos # (Auto) Baso # (Auto) Abs Immat Gran (auto) Absolute Neuts (auto) Absolute Nucleated RBC Nucleated RBC % (auto) Smear Tech's Comments PT INR Sodium 137 Potassium 4.1 Chloride 105 Carbon Dioxide 23 Anion Gap 13 BUN 11 Creatinine 0.71 Estim Creat Clear Calc 79.5 Estimated GFR > 60 POC Glucose 139 H Random Glucose 136 H Calcium 9.0 D Troponin I High Sens Triglycerides 80 Cholesterol 127 LDL Cholesterol, Calc 63 HDL Cholesterol 48 COVID-19 ([facility]) Positive A COVID-19 Clin Com See Note Imaging MRI - head: Radiologist's impression: ITS Impressions Head CT 12/31/21 14:42 IMPRESSION: Generalized atrophy and nonspecific periventricular white matter disease. Multiple age indeterminate left-sided infarcts in the left posterior parietal, occipital and frontal lobes. This critical result was discussed with Dr. Cannon at 14 55 hours on 12/31/2021. It was ascertained that the content and urgency of the report was understood at the time of direct communication. Chest X-Ray 12/31/21 15:17 IMPRESSION: No acute cardiopulmonary process. Brain MRI 12/31/21 18:15 IMPRESSION: - No acute intracranial findings. No acute infarcts. - Progressive chronic infarcts throughout the left cerebral hemisphere including the deep watershed zone. There is background moderate chronic microangiopathy. - There is a focus of chronic hemosiderin staining within the left hebert. No adjacent edema to suggest acute hemorrhage. There is also chronic hemosiderin staining within the left occipital lobe. Head/Neck CTA 12/31/21 20:46 IMPRESSION: - No acute findings. Redemonstrated global cerebral volume loss, chronic microangiopathy, and extensive chronic infarcts throughout the left cerebral hemisphere including the deep watershed zone. - No acute arterial occlusions intracranially. - Moderate to severe stenosis at the origin of one of the right MCA post bifurcation divisions. - Lipid rich and calcific atherosclerotic plaque results in a less than 50% stenosis of the proximal left internal carotid artery. 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 - There is atherosclerotic calcification involving the right carotid bifurcation that along with lipid rich atherosclerotic plaque results in a less than 50% stenosis of the proximal right internal carotid artery. - Atherosclerotic calcification results in moderate stenoses of the intradural vertebral arteries bilaterally. Discharge Plan Discharge Patient Disposition: Home, Self-Care Discharge Diagnosis: Aphasia, Transient ischemic attack Referrals: Physician,Unknown J [Primary Care Provider] - 1 Week Discharge Medications: New atorvastatin 80 mg Tablet 80 mg PO BEDTIME 30 Days Qty: 30 0RF amlodipine 5 mg Tablet 5 mg PO DAILY 30 Days Qty: 30 0RF Protocol: Hold for SBP< HOLD for SBP < : 90 Continued trazodone 50 mg tablet 0.5 - 1 tab PO BEDTIME PRN (Reason: Sleep) 0RF clopidogrel 75 mg tablet 1 tab PO BEDTIME 0RF multivitamin Tablet 1 tab PO DAILY 0RF acetaminophen 325 mg Tablet 650 mg PO Q6H PRN (Reason: Pain) 0RF cholecalciferol (vitamin D3) 25 mcg (1,000 unit) Tablet 25 mcg PO DAILY 0RF Changed lisinopril 5 mg tablet 2 tab PO DAILY 30 Days Qty: 60 0RF Discontinued simvastatin 40 mg tablet 1 tab PO BEDTIME 0RF Discharge Orders: Discharge Order (Routine); Ordered 01/01/22 Ordered By: Rosenda Diaz Diet: advance to usual diet and low salt diet Activity on Discharge: As tolerated Stand Alone Forms: Patient Portal Discharge page Other Ambulatory Orders: Basic Metabolic Panel (Routine) Timeframe: 1 Week Facility: [facility] - Location: Laboratory Ordered By: Rosenda Diaz EEG ambulatory (Routine) Timeframe: 2 Weeks Facility: [facility] - Location: Radiology Ordered By: Rosenda Diaz Care Plan Goals: Read below Health Concerns: Read below Plan of Treatment: Read below Assessment: You were evaluated at the hospital for episode of difficulty in speech. Images of the brain including CT scan and MRI were negative for any acute findings. MRI showed evidence of progressive small strokes. Evaluated by neurologist who recommended outpatient follow-up for an EEG study. Your blood pressure was noted to be elevated. Amlodipine was added to your home medication with increase of your lisinopril to 10 mg daily. To follow-up with Neurology as outpatient, Dr. Murillo, call the office for an appointment. Start amlodipine 5 mg daily Increase lisinopril to 10 mg daily Monitor your blood pressure at home with to readings a day for the next week. Review readings with PCP for further adjustments. To repeat blood work next week. Discharge Date/Time: 01/01/22 15:01
--- NOTE | 2022-01-01 16:18 | MHC.CM.PN ---
PT DISCHARGED HOME TODAY WITH NO SERVICES PRIOR TO BEING SEEN BY CM FAMILY PROVIDED TRANSPORT.
== END 2022-01-01 15:01 | disposition home or self-care (01) ==
LOC: HO.ED 15:42 → HO.EDOVER 15:55 → HO.IMC 17:46
PROVIDERS: Admitting Provider Student in an Organized Health Care Education/Training Program; Emergency Provider Emergency Medicine Emergency Medical Services; Visit Provider Student in an Organized Health Care Education/Training Program
DX: R47.01 Aphasia (principal); I10 Essential (primary) hypertension; R41.0 Disorientation, unspecified; I45.10 Unspecified right bundle-branch block; I25.10 Atherosclerotic heart disease of native coronary artery without angina pectoris; R94.31 Abnormal electrocardiogram [ECG] [EKG]; M47.812 Spondylosis without myelopathy or radiculopathy, cervical region; U07.1 COVID-19; Z86.73 Personal history of transient ischemic attack (TIA), and cerebral infarction without residual deficits; Z79.82 Long term (current) use of aspirin; Z79.899 Other long term (current) drug therapy
CPT/HCPCS: 36415; 70450; 70496; 70498; 70551; 71045; 80048; 80061; 82947; 84484; 85025; 85610; 87635; 92523; 93005; 96372; 96374; 96376; 97162; 99219; 99285; J1650; Q9967

== ENCOUNTER 2022-01-24 09:40 | Emergency (ER) | payer MEDICARE, SELFPAY ==
[2022-01-24 09:49] VITALS: BP 177/73; PULSE 84; RESP 16; TEMP 36.4; O2SAT 98; BMI 24.0
--- NOTE | 2022-01-24 10:00 | ED.GENADULT ---
HPI - General Adult General Chief complaint: Skin/Abscess/Foreign Body Stated complaint: L Elbow Tear No Injury Time Seen by Provider: 01/24/22 10:00 Source: patient Mode of arrival: ambulatory Limitations: no limitations History of Present Illness HPI narrative: Patient is an 86 year old male presenting to the emergency department today with a left elbow injury. Patient states that a few days ago, he bumped his left elbow and it tore some of his skin. Patient states that since then, it has continued to bleed despite him continuing to keep it wrapped. Patient states that he takes plavix. Patient denies any dizziness, lightheadedness, abdominal pain, nausea, vomiting, fever, chills, blurry vision, double vision, loss of vision, chest pain, difficulty breathing, shortness of breath, back pain, night sweats, pain with urination, increased urinary frequency, increased urinary urgency, blood in his urine or stool, syncope or a near syncopal episode, recent trauma or falls, bowel incontinence, bladder incontinence, bowel retention, bladder retention, or any other complaints at this time. Onset (ago): day(s) Location: left and upper extremity Radiation: non-radiation Severity: mild Severity scale (1-10): 1 Relieving factors: none Exacerbating factors: none Associated symptoms: denies other symptoms Treatments prior to arrival: none Related Data Home Medications Medication Instructions Recorded Confirmed acetaminophen 325 mg tablet 650 mg PO Q6H PRN 12/31/21 12/31/21 cholecalciferol (vitamin D3) 25 25 mcg PO DAILY 12/31/21 12/31/21 mcg (1,000 unit) tablet clopidogrel 75 mg tablet 1 tab PO BEDTIME 12/31/21 12/31/21 multivitamin 1 tab PO DAILY 12/31/21 12/31/21 trazodone 50 mg tablet 0.5 - 1 tab PO BEDTIME PRN 12/31/21 12/31/21 Previous Rx's Medication Instructions Recorded amlodipine 5 mg tablet 5 mg PO DAILY 30 Days #30 tab 01/01/22 atorvastatin 80 mg tablet 80 mg PO BEDTIME 30 Days #30 tab 01/01/22 lisinopril 5 mg tablet 2 tab PO DAILY 30 Days #60 tab 01/01/22 Allergies Allergy/AdvReac Type Severity Reaction Status Date / Time No Known Allergies Allergy Unverified 05/14/20 19:29 [No Known Allergies*] Review of Systems Constitutional: Constitutional: Reports no additional constitutional complaints, Denies chills, Denies fever(s) and Denies night sweats Eyes: Eyes: Reports no additional eye complaints, Denies blurry vision, Denies change in vision, Denies diplopia, Denies eye discharge, Denies loss of vision and Denies eye pain ENT: Denies dizziness Cardiovascular: Cardiovascular: Reports no additional cardiovascular complaints, Denies chest pain, Denies lightheadedness, Denies Loss of Consciousness and Denies dyspnea Respiratory: Respiratory: Reports no additional respiratory complaints and Denies dyspnea Gastrointestinal: Gastrointestinal: Reports no additional gastrointestinal complaints, Denies abdominal pain, Denies melena, Denies hematochezia, Denies change in bowel habits and Denies change in stool character Genitourinary: Genitourinary: Reports no additional male genitourinary complaints, Denies hematuria, Denies oliguria, Denies difficulty urinating, Denies dysuria, Denies urinary frequency, Denies urinary hesitancy, Denies urinary incontinence and Denies urinary urgency Musculoskeletal: Musculoskeletal: Reports no additional musculoskeletal complaints, Denies numbness and Denies tingling Integumentary/Breasts: Comments: left elbow abrasion Neurologic: Denies dizziness, Denies loss of vision, Denies numbness and Denies tingling Psychiatric: Psychiatric: Reports no additional psychiatric complaints Endocrine: Endocrine: Reports no additional endocrine complaints Hematologic/Lymphatic: Hematologic/Lymphatic: Reports no additional hematologic/lymphatic complaints Allergic/Immunologic: Allergic/Immunologic: Reports no additional allergic/immunologic complaints [facility] Past Medical History Attestation statement: The following information was validated with the patient. Source: old records reviewed Medical History CAD (coronary artery disease) History of stroke HTN (hypertension) Social History Social History Alcohol intake: current Alcohol intake frequency: 0-2 drinks per day Alcohol type: wine and hard liquor Patient Tobacco Use Status: Never used Tobacco Advance Directives: No Advance Directives Information Provided: No Physical Exam ED Vital Signs: Vital Signs - 24 hr 01/24/22 09:49 Temperature 97.6 F Pulse Rate 84 Respiratory Rate 16 Blood Pressure 177/73 H Pulse Oximetry 98 BMI result Body Mass Index 24.0 Const General: cooperative, no acute distress, alert and awake Nutritional Appearance: well nourished Orientation/consciousness: patient oriented x3 Limitations: no limitations HENMT Head: Yes normal to inspection and Yes atraumatic Ears: hearing grossly normal bilaterally and external ears normal General nose exam: Normal external nose present, no nasal discharge noted and no epistaxis Face and sinus: Yes normal facial exam, No abrasion and No laceration Mouth: Normal oral and palatal mucosa present, no drooling and no muffled voice Eyes General: appearance normal, both eyes and all related structures Periorbital: periorbital findings normal Eyelids: Yes eyelids normal Conjunctivae: conjunctivae normal Pupils: Equal, round and reactive pupils present EOM: EOMs intact bilaterally Neck Neck: Yes normal visual inspection, Yes full ROM and Yes no lymphadenopathy Chest Chest palpation & inspection: normal inspection of the chest Resp Effort & Inspection: normal respiratory effort and able to speak in complete sentences Auscultation: clear to auscultation bilaterally Cardio Rate: regular rate Rhythm: regular rhythm GI Inspection: Yes normal to inspection Skin Other: small, superficial skin avulsion to the left elbow with no active bleeding. Neuro General: patient oriented x3 and moves all extremities Cranial nerves: Yes Equal, round and reactive pupils present Cognition (Neuro): normal cognition Motor exam (neuro): 5/5 motor strength present throughout Sensory Exam: Normal double simultaneous stimulation for sensation Coordination: [id number] test normal Extrem General: Yes normal to inspection, Yes full ROM and Yes capillary refill normal Psych Appearance: grossly normal Mental Status: mental status grossly normal Affect: normal affect Attitude: cooperative Thought process: Normal thought process present Thought content: Normal thought content present Insight: Good insight present (Psych) Procedures Procedure Narrative Procedure Narrative: Surgicell placed on left elbow skin avulsion and wound was wrapped, without incident. Medical Decision Making MDM Narrative Medical decision making narrative: Patient is an 86 year old male presenting to the emergency department today with a left elbow abrasion. Patient's physical exam showed a small, superficial, skin avulsion of the left elbow with no active bleeding. Patient's wound was covered with surgicell and rewrapped, without incident. Patient's PMS was intact to the left upper extremity prior to and after wrapping of the wound. I explained my physical exam findings to the patient. I answered all questions asked by the patient. I stressed the importance of the patient taking his medication as prescribed. I stressed the importance of the patient following up with his primary care provider. I stressed the importance of the patient returning to the emergency department immediately if his symptoms were to worsen or if he were to develop any numbness, tingling, dizziness, shortness of breath, difficulty breathing, chest pain, blurry vision, loss of vision, nausea, vomiting, abdominal pain, fever, chills, back pain, or any other complaints. Patient verbalized agreement and understanding with this treatment plan and discharge. Differential Diagnosis Differential Diagnosis: skin abrasion, skin avulsion, skin tear Medical Records Medical records reviewed: Yes I reviewed the patient's medical records. Discharge Plan Discharge Clinical Impression: Avulsion of skin Patient Disposition: Home, Self-Care Instructions: Skin Avulsion (ED) Additional Instructions: Follow up with your primary care provider. Return to the emergency department immediately if your symptoms worsen or if you develop any dizziness, shortness of breath, difficulty breathing, chest pain, blurry vision, loss of vision, nausea, vomiting, abdominal pain, fever, chills, back pain, or any other complaints. Prescriptions: No Action trazodone 50 mg tablet 0.5 - 1 tab PO BEDTIME PRN (Reason: Sleep) 0RF clopidogrel 75 mg tablet 1 tab PO BEDTIME 0RF multivitamin Tablet 1 tab PO DAILY 0RF acetaminophen 325 mg Tablet 650 mg PO Q6H PRN (Reason: Pain) 0RF cholecalciferol (vitamin D3) 25 mcg (1,000 unit) Tablet 25 mcg PO DAILY 0RF atorvastatin 80 mg Tablet 80 mg PO BEDTIME 30 Days Qty: 30 0RF amlodipine 5 mg Tablet 5 mg PO DAILY 30 Days Qty: 30 0RF Protocol: Hold for SBP< HOLD for SBP < : 90 lisinopril 5 mg tablet 2 tab PO DAILY 30 Days Qty: 60 0RF Referrals: Mark Cornelius MD [Primary Care Provider] - Interventions: ED Discharge Assessment Last Done: 01/24/22 10:23 Discharge Date/Time: 01/24/22 10:23 Print Language: Maltese
== END 2022-01-24 10:23 | disposition home or self-care (01) ==
PROVIDERS: Emergency Provider Emergency Medicine; PCP Internal Medicine
DX: S50.312A Abrasion of left elbow, initial encounter (principal); L02.414 Cutaneous abscess of left upper limb; X58.XXXA Exposure to other specified factors, initial encounter; Y93.9 Activity, unspecified; Y92.9 Unspecified place or not applicable; Y99.9 Unspecified external cause status; Z79.899 Other long term (current) drug therapy
CPT/HCPCS: 12001; 99282

== ENCOUNTER 2022-03-12 14:30 | Emergency (ER) | payer MEDICARE, SELFPAY | END 2022-03-12 15:55 | disposition left against medical advice (07) | PROVIDERS: Emergency Provider Emergency Medicine; PCP Internal Medicine | DX: R10.9 Unspecified abdominal pain (principal); I10 Essential (primary) hypertension ==

== ENCOUNTER 2022-03-24 09:33 | Outpatient (REF) | payer MEDICARE, SELFPAY ==
[2022-03-24 11:20] LABS: Anion Gap 14 (12-20); Blood Urea Nitrogen 14 mg/dL (9-16); Calcium 9.4 mg/dL (8.4-10.2); Carbon Dioxide 27 mmol/L (22-29); Chloride 104 mmol/L (96-108); Estimated Glomerular Filt Rate > 60; Glucose Random 267 mg/dL (60-115); Potassium 4.5 mmol/L (3.3-5.1); Sodium 140 mmol/L (135-145)
== END 2022-03-24 09:34 | disposition home or self-care (01) ==
LOC: HO.BBR 09:33
PROVIDERS: Student in an Organized Health Care Education/Training Program; PCP Internal Medicine; Visit Provider Internal Medicine Hematology & Oncology
DX: E83.110 Hereditary hemochromatosis (principal); I10 Essential (primary) hypertension
CPT/HCPCS: 36415; 80048

== ENCOUNTER 2022-04-11 10:59 | Outpatient (REF) | payer MEDICARE, SELFPAY | END 2022-04-11 11:00 | disposition home or self-care (01) | LOC: HO.BBR 10:59 | PROVIDERS: Visit Provider Internal Medicine Hematology & Oncology | DX: Z13.89 Encounter for screening for other disorder (principal) ==

== ENCOUNTER 2022-04-25 10:47 | Outpatient (REF) | payer MEDICARE, SELFPAY | END 2022-04-25 10:48 | disposition home or self-care (01) | LOC: HO.BBR 10:47 | PROVIDERS: Visit Provider Internal Medicine Hematology & Oncology | DX: Z13.89 Encounter for screening for other disorder (principal) ==

== ENCOUNTER 2022-05-09 10:52 | Outpatient (REF) | payer MEDICARE, SELFPAY | END 2022-05-09 10:53 | disposition home or self-care (01) | LOC: HO.BBR 10:52 | PROVIDERS: Visit Provider Internal Medicine Hematology & Oncology | DX: Z13.89 Encounter for screening for other disorder (principal) ==

== ENCOUNTER 2022-05-23 10:50 | Outpatient (REF) | payer MEDICARE, SELFPAY | END 2022-05-23 10:51 | disposition home or self-care (01) | LOC: HO.BBR 10:50 | PROVIDERS: Visit Provider Internal Medicine Hematology & Oncology | DX: Z13.89 Encounter for screening for other disorder (principal) ==

== ENCOUNTER 2022-06-07 10:58 | Outpatient (REF) | payer MEDICARE, SELFPAY | END 2022-06-07 10:59 | disposition home or self-care (01) | LOC: HO.BBR 10:58 | PROVIDERS: Visit Provider Internal Medicine Hematology & Oncology | DX: Z13.89 Encounter for screening for other disorder (principal) ==

== ENCOUNTER 2022-06-20 10:49 | Outpatient (REF) | payer MEDICARE, SELFPAY | END 2022-06-20 10:50 | disposition home or self-care (01) | LOC: HO.BBR 10:49 | PROVIDERS: Visit Provider Internal Medicine Hematology & Oncology | DX: Z13.89 Encounter for screening for other disorder (principal) ==

== ENCOUNTER 2022-07-04 10:54 | Outpatient (REF) | payer MEDICARE, SELFPAY | END 2022-07-04 10:55 | disposition home or self-care (01) | LOC: HO.BBR 10:54 | PROVIDERS: Visit Provider Internal Medicine Hematology & Oncology | DX: Z13.89 Encounter for screening for other disorder (principal) ==

== ENCOUNTER 2022-07-18 10:46 | Outpatient (REF) | payer MEDICARE, SELFPAY | END 2022-07-18 10:47 | disposition home or self-care (01) | LOC: HO.BBR 10:46 | PROVIDERS: Visit Provider Internal Medicine Hematology & Oncology | DX: Z13.89 Encounter for screening for other disorder (principal) ==

== ENCOUNTER 2022-08-01 13:45 | Outpatient (REF) | payer MEDICARE, SELFPAY | END 2022-08-01 13:46 | disposition home or self-care (01) | LOC: HO.BBR 13:45 | PROVIDERS: Visit Provider Internal Medicine Hematology & Oncology | DX: Z13.89 Encounter for screening for other disorder (principal) ==

== ENCOUNTER 2022-08-15 10:48 | Outpatient (REF) | payer MEDICARE, SELFPAY | END 2022-08-15 10:49 | disposition home or self-care (01) | LOC: HO.BBR 10:48 | PROVIDERS: Visit Provider Internal Medicine Hematology & Oncology | DX: Z13.89 Encounter for screening for other disorder (principal) ==

== ENCOUNTER 2022-08-31 09:47 | Outpatient (REF) | payer MEDICARE, SELFPAY | END 2022-08-31 09:48 | disposition home or self-care (01) | LOC: HO.BBR 09:47 | PROVIDERS: PCP Internal Medicine; Visit Provider Internal Medicine Hematology & Oncology | DX: Z13.89 Encounter for screening for other disorder (principal) ==

== ENCOUNTER 2022-09-19 09:49 | Outpatient (REF) | payer MEDICARE, SELFPAY | END 2022-09-19 09:50 | disposition home or self-care (01) | LOC: HO.BBR 09:49 | PROVIDERS: Visit Provider Internal Medicine Hematology & Oncology | DX: Z13.89 Encounter for screening for other disorder (principal) ==

== ENCOUNTER 2022-10-03 09:47 | Outpatient (REF) | payer MEDICARE, SELFPAY | END 2022-10-03 09:48 | disposition home or self-care (01) | LOC: HO.BBR 09:47 | PROVIDERS: Visit Provider Internal Medicine Hematology & Oncology | DX: Z13.89 Encounter for screening for other disorder (principal) ==

== ENCOUNTER 2022-10-18 10:58 | Outpatient (REF) | payer MEDICARE, SELFPAY | END 2022-10-18 10:59 | disposition home or self-care (01) | LOC: HO.BBR 10:58 | PROVIDERS: Visit Provider Internal Medicine Hematology & Oncology | DX: Z13.89 Encounter for screening for other disorder (principal) ==

== ENCOUNTER 2022-10-31 09:52 | Outpatient (REF) | payer MEDICARE, SELFPAY | END 2022-10-31 09:53 | disposition home or self-care (01) | LOC: HO.BBR 09:52 | PROVIDERS: Visit Provider Internal Medicine Hematology & Oncology | DX: Z13.89 Encounter for screening for other disorder (principal) ==

== ENCOUNTER 2022-11-14 09:52 | Outpatient (REF) | payer MEDICARE, SELFPAY | END 2022-11-14 09:53 | disposition home or self-care (01) | LOC: HO.BBR 09:52 | PROVIDERS: Visit Provider Internal Medicine Hematology & Oncology | DX: Z13.89 Encounter for screening for other disorder (principal) ==

== ENCOUNTER 2022-11-28 10:54 | Outpatient (REF) | payer MEDICARE, SELFPAY | END 2022-11-28 10:55 | disposition home or self-care (01) | LOC: HO.BBR 10:54 | PROVIDERS: Visit Provider Internal Medicine Hematology & Oncology | DX: Z13.89 Encounter for screening for other disorder (principal) ==

== ENCOUNTER 2023-01-31 10:46 | Outpatient (REF) | payer MEDICARE, SELFPAY | END 2023-01-31 10:47 | disposition home or self-care (01) | LOC: HO.BBR 10:46 | PROVIDERS: Visit Provider Internal Medicine Hematology & Oncology | DX: Z13.89 Encounter for screening for other disorder (principal) ==

== ENCOUNTER 2023-04-03 10:47 | Outpatient (REF) | payer MEDICARE, SELFPAY | END 2023-04-03 10:48 | disposition home or self-care (01) | LOC: HO.BBR 10:47 | PROVIDERS: Visit Provider Internal Medicine Hematology & Oncology | DX: Z13.89 Encounter for screening for other disorder (principal) ==

== ENCOUNTER 2023-06-12 09:44 | Outpatient (REF) | payer MEDICARE, SELFPAY | END 2023-06-12 09:45 | disposition home or self-care (01) | LOC: HO.BBR 09:44 | PROVIDERS: PCP Internal Medicine; Visit Provider Internal Medicine Hematology & Oncology | DX: Z13.89 Encounter for screening for other disorder (principal) ==

== ENCOUNTER 2024-02-01 12:33 | Outpatient (AMB) | payer MEDICARE, SELFPAY ==
--- NOTE | 2024-02-01 13:13 | AM.OFFWIN_ITS ---
Intake Vital Signs 02/01/24 13:15 Height 5 ft 11 in Weight 183 lb BMI 25.5 BP 140/78 H Blood Pressure Location Lt brachial Position Sitting Pulse 83 Pulse Source Pulse Oximeter Temp 97.3 F Temp Source Temporal Artery Scan Pulse Oximetry (%) 97 Oxygen Delivery Method Room Air Intake Visit Reasons: est/ cut left upper arm still bleeding Intake Note: pt is here today for cut lft upper arm bleeding started yesterday Patient Tobacco Use Status: Never used Tobacco Allergies No Known Allergies [No Known Allergies*] Allergy (Unverified 02/01/24 13:18) Do you need a note to return to daycare/school/sports/work: No HPI HPI Comments History of Present Illness Details 88 y/o male patient who presents to walk in clinic with c/o superficial cut left upper arm. Pt currently on blood thinners. Pt was working on his Yard, and piece of branch tree cut his skin. [facility] Medical History CAD (coronary artery disease) History of stroke HTN (hypertension) Social History Alcohol intake: current Alcohol intake frequency: 0-2 drinks per day Alcohol type: wine and hard liquor Patient Tobacco Use Status: Never used Tobacco Review of Systems Const All systems reviewed & are unremarkable except as noted in HPI and below Physical Exam Vital Signs: Last Vital Signs Temp 97.3 F 02/01/24 13:15 Pulse 83 02/01/24 13:15 BP 140/78 H 02/01/24 13:15 Pulse Ox 97 02/01/24 13:15 Oxygen Delivery Method Room Air 02/01/24 13:15 BMI result Body Mass Index 25.5 Const General: comfortable and no acute distress Orientation/consciousness: patient oriented x3 Skin Other: Superficial skin tear left upper arm. Neuro General: patient oriented x3, gait normal and moves all extremities Psych Speech and movement: Normal speech and movement present Assessment & Plan Assessment & Plan (1) Skin tear of forearm without complication: Code(s): S51.819A - Laceration without foreign body of unspecified forearm, initial encounter Qualifiers: Encounter type: initial encounter Laterality: left Qualified Code(s): S51.812A - Laceration without foreign body of left forearm, initial encounter Plan: - Cleaned the area - Applied a pressure dressing - RTC if bleeding does not stop. Coding Level of Care Code Est Pt Level 3 (70834) Diagnoses Skin tear of left forearm without complication, initial encounter S51.812A Encounter type: initial encounter Laterality: left Time Spent (min) 15
[2024-02-01 13:15] VITALS: BP 140/78; PULSE 83; TEMP 36.3; O2SAT 97; BMI 25.5
== END 2024-02-01 14:05 | disposition home or self-care (01) ==
PROVIDERS: PCP Internal Medicine; Visit Provider Nurse Practitioner Family
DX: S51.812A Laceration without foreign body of left forearm, initial encounter (principal)
CPT/HCPCS: 99213

== ENCOUNTER 2025-08-07 12:42 | Outpatient (AMB) | payer MEDICARE, SELFPAY ==
--- NOTE | 2025-08-07 12:52 | AM.OFFWIN_ITS ---
Intake Vital Signs 3 08/07/25 12:54 Height 5 ft 11 in Weight 161 lb BMI 22.5 BP 140/70 H Blood Pressure Location Lt brachial Position Sitting Pulse 85 Pulse Source Pulse Oximeter Pulse Oximetry (%) 100 Oxygen Delivery Method Room Air Intake Visit Reasons: EP-body pain and cuts from a fall Intake Note: Patient presents c/o injuries sustained from a fall on the ice a little bit ago - cuts on hands, fingers, wrist, right knee & pain on right flank. Patient Tobacco Use Status: Never used Tobacco Allergies No Known Allergies (No Known Allergies*) Allergy (Unverified 08/07/25 12:56) HPI HPI Comments 2 History of Present Illness0 Details 89-year-old male presents to the walk-in clinic with complaints of generalized body aches and multiple bruises after a fall this morning. Patient reports he slipped on ice while walking to his mailbox and fell to the ground. Notes bruising and open skin wounds with active bleeding on the right leg below the knee, right middle finger, and right wrist. He is currently taking Coumadin. Denies hitting his head or any loss of consciousness. No dizziness, chest pain, or shortness of breath reported. [facility] Medical History (Updated 08/07/25 @ 14:07 by Nadia Robin NP) Superficial abrasion CAD (coronary artery disease) HTN (hypertension) History of stroke Social History Alcohol intake: current Alcohol intake frequency: 0-2 drinks per day Alcohol type: wine and hard liquor Patient Tobacco Use Status: Never used Tobacco Review of Systems Const All systems reviewed & are unremarkable except as noted in HPI and below Physical Exam Vital Signs: Last Vital Signs Pulse 85 08/07/25 12:54 BP 140/70 H 08/07/25 12:54 Pulse Ox 100 08/07/25 12:54 Oxygen Delivery Method Room Air 08/07/25 12:54 BMI result Body Mass Index 22.5 Const General: comfortable and no acute distress Nutritional Appearance: well nourished Orientation/consciousness: patient oriented x3 Resp Effort & Inspection: normal respiratory effort Cardio Rate: regular rate Neuro General: patient oriented x3, gait normal and moves all extremities Extrem Elbow/forearm/wrist images: 2 1. Bruising with superficial laceration, active bleeding present. Hand/finger images: 2 1. Superficial open skin wound with mild bleeding, Nail Tip. 2. Bruising with small open abrasion, no active bleeding. Psych Speech and movement: Normal speech and movement present Assessment & Plan Assessment & Plan (1) Superficial abrasion: Code(s): T14.8XXA - Other injury of unspecified body region, initial encounter Plan: Multiple contusions and superficial lacerations ? right lower leg, right middle finger, right wrist. Increased bleeding risk due to anticoagulation (Coumadin). Cleaned wounds with normal saline; controlled bleeding with direct pressure. Applied antibiotic ointment and sterile dressings to affected areas. Strict ER precautions: worsening pain, significant swelling, uncontrolled bleeding, dizziness, weakness, or any head-injury symptoms. Coding Level of Care Code Est Pt Level 4 (65811) Diagnoses Superficial abrasion T14.8XXA Time Spent (min) 20
[2025-08-07 12:54] VITALS: BP 140/70; PULSE 85; O2SAT 100; BMI 22.5
--- OUTSIDE RECORDS SUMMARY | 2025-08-07 19:11 | XMS_ITS | Encounter Summary ---
Author Organization [facility] Address [address] [place] [address] Care Team Providers Care Manager Wound Care Name Role Phone Mark Cornelius MD Primary Care Provider [phone] Encounter Details Date Type Department Care Team ([facility] st Contact Info) Description 08/30/2017 Prep for Surgery [facility] OPHTHALMOLOGY [address] [place] [address] Prince Pang MD [address] [address] Social History Tobacco Use Types Packs/Day Years Used Date Smoking Tobacco: Former Cigarettes 0.5 2 0 08/28/1956 - 08/28/1958 Smokeless Tobacco: Never Alcohol Use Standard Drinks/Week Comments Yes 2 (1 standard drink = 0.6 oz pur e alcohol) daily Sex and Gender Information Value Date Recorded Sex Assigned at Not on file Legal Sex Male 10:28 AM EST Gender Identity Not on file Sexual Orientation Not on file documented as of this encounter Plan of Treatment Not on file documented as of this encounter Visit Diagnoses Not on filedocumented in this encounter Care Teams Manager Wound Care Relationship Specialty Start Date End Date Mark Cornelius MD [address] [address] PCP - General 08/17/17 documented as of this encounter
--- OUTSIDE RECORDS SUMMARY | 2025-08-07 19:11 | XMS_ITS | Encounter Summary ---
Author Organization [facility] Address [address] [place] [address] Care Team Providers Care Spring Assembler Supervisor Name Role Phone Physician, Pcp Unknown Primary Care Provider Alaina vailable Encounter Details Date Type Department Care Team (Late st Contact Info) Description 11/11/[address] [facility] - Main Lab [address] [place] [address] Declan Naylor PA [address] [place] [id number] Gross hematuria Social History Tobacco Use Types Packs/Day Years Used Date Smoking Tobacco: Never Assessed Sex and Gender Information Value Date Recorded Sex Assigned at Not on file Legal Sex Male 8:24 AM EST Gender Identity Not on file Sexual Orientation Not on file documented as of this encounter Plan of Treatment Not on file documented as of this encounter Procedures Procedure Name Priority Date/Time Associated Diagnosis Comments AP OUTSIDE CONSULT Routine 11/06/2024 12 :00 AM EDT Gross hematuria documented in this encounter Results * Anatomic pathology outside consult (11/06/2024 12:00 AM EDT) Final Diagnosis A. 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 Results of UroVysion fluorescence in situ hybridization (FISH) testing: CEP3: Normal CEP7: Normal CEP17: Normal LSI 9p21: Normal Interpretation: Normal profile Controls stained appropriately. Note: The results are intended as a screening device and should be interpreted in association with other clinical and pathological findings. 11/21/2024 2:36 PM EDT [facility] at 1436 EDT Clinical Information Gross hematuria R31.0 Urine Cytology/FISH (now) 11/21/2024 2:36 PM EDT [facility] Gross Description A. Urine, Voided, ([id number]): Received one ThinPrep slide for cytology and one ThinPrep slide for UroVysion FISH 11/21/2024 2:36 PM EDT [facility] Disclaimer Unless otherwise specified, all tissue is 10% NB formalin fixed and paraffin embedded. Technical pathology services provided by [facility] at [address] [facility] [address], [place] [address] (CLIA #[id number]/Radha Saravia MD, Pc Tech) 11/21/2024 2:36 PM EDT [facility] Tissue Urine specimen from urethra / Unknown 11/06/2024 11/11/2024 11:38 AM EDT us Declan LORENZO LAB PATHOLOGY ORDERAB LES Final Result [facility] [address] [place] [address], documented in this encounter Visit Diagnoses Diagnosis Gross hematuria documented in this encounter Care Teams Spring Assembler Supervisor Relationship Specialty Start Date End Date Physician, Pcp Unknown PCP - General 11/11/24 documented as of this encounter
--- OUTSIDE RECORDS SUMMARY | 2025-08-07 19:11 | XMS_ITS | Patient Health Record ---
Author Organization [facility] Address [address] [facility] [place] [address] Care Team Providers Care Insurance Processor Name Role Phone Adryan CALZADA, Mark Primary Care Provider Dinorah Cummings Unavailable [phone] FifiLucia woo Unavailable [phone] Allergies No Known Allergies Reason For Referral No Information Medications Medication SIG (Take, Route, Frequency, Duration) Notes Start Date End Date Status amLODIPine Besylate 5 MG Oral; Duration: 90 Days Active Lisinopril 10 MG Oral; Duration: 90 Days Active Vitamin D3 10/13/2023 Active Tylenol 10/13/2023 Active Multivitamin - 1 tablet Orally Once a day; Duration: 30 day(s) 10/13/2023 Active Glucosamine 10/13/2023 Active traZODone HCl 50 MG Oral; Duration: 90 Days Active Atorvastatin Calcium 80 MG Oral; Duration: 90 Days Active Clopidogrel Bisulfate 75 MG Oral; Duration: 90 Days Active Immunizations Vaccine Route Administration Date Status Comme nts Influenza Unknown 05/29/2024 Administered Influenza Unknown 05/28/2025 Administered Social History Tobacco Use: Social History Observation Description Date Details (start date - stop date) Never Smoker NA - NA Tobacco use other than smoking: Question Answer Notes Are you an other tobacco user? No Tobacco Control (Standard) Question Answer Notes Tobacco use: Nonsmoker Additional Findings: Tobacco non-user Current no nsmoker AUDIT-C (Standard) Question Answer Notes Did you have a drink containing alcohol in the p ast year? 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) Active confirmed Vital Signs Blood pressure diastolic 67 mm Hg 06/26/2025 Height 5 ft 11 in in 06/26/2025 Blood pressure systolic 127 mm Hg 06/26/2025 Weight 163 lbs 06/26/2025 BMI 22.73 kg/m2 06/26/2025 Procedures Procedure Date Ordered Date Performed Result Body Sit e [id number]-[id number] NAIL, 6 OR MORE 09/11/2024 N/A Encounters Encounter Location Date Provider Diagnosis [address] [address] 09/11/2024 Dinorah Haley Onychomycosis B35.1 ; Pain in right toe(s) M79.674 and Pain in left toe(s) M79.[address] [address] 11/20/2024 Lucia Hamida Onychomycosis B35.1 ; Pain in right toe(s) M79.674 and Pain in left toe(s) M79.[address] [address] 01/22/2025 Dinorah Haley Onychomycosis B35.1 ; Pain in right toe(s) M79.674 and Pain in left toe(s) M79.[address] [address] 04/07/2025 Dinorah Haley Onychomycosis B35.1 ; Pain in right toe(s) M79.674 and Pain in left toe(s) M79.[address] [address] 06/26/2025 Dinorah Haley Onychomycosis B35.1 ; Pain in right toe(s) M79.674 and Pain in left toe(s) M79.675 Assessments Encounter Date Diagnosis (ICD Code) Assessment Notes Treatment Notes Treatment Clinical Notes Section Notes 09/11/2024 Pain in right toe(s) (ICD-10 - M79.674) 09/11/2024 Onychomycosis (ICD-10 - B35.1) 11/20/2024 Onychomycosis (ICD-10 - B35.1) 01/22/2025 Onychomycosis (ICD-10 - B35.1) 04/07/2025 Onychomycosis (ICD-10 - B35.1) 06/26/2025 Onychomycosis (ICD-10 - B35.1) 04/07/2025 Pain in right toe(s) (ICD-10 - M79.674) 06/26/2025 Pain in right toe(s) (ICD-10 - M79.674) 11/20/2024 Pain in right toe(s) (ICD-10 - M79.674) 01/22/2025 Pain in right toe(s) (ICD-10 - M79.674) 09/11/2024 Pain in left toe(s) (ICD-10 - M79.675) 01/22/2025 Pain in left toe(s) (ICD-10 - M79.675) 11/20/2024 Pain in left toe(s) (ICD-10 - M79.675) 04/07/2025 Pain in left toe(s) (ICD-10 - M79.675) 06/26/2025 Pain in left toe(s) (ICD-10 - M79.675) Plan Of Treatment Pending Test Test Name Order Date [id number] NAIL, 6 OR MORE 07/11/2024 [id number] NAIL, 6 OR MORE 09/11/2024 Next Appt Details Provider Name:Dinorah Tapia alex, 09/24/2025 04:00:00 PM, [address] [facility], [place], [address], Insurance Providers Payer Name Payer Address Payer Phone Subscriber Number Group Number Insured Name Patient Relationship to Insured Coverage Start Date Coverage End Date Medicare National [employer] [address] [place] [address] [id number] Turner Beasley Jr Self - patient is the insured [employer] [address] [place] [address] [id number] Turner Beasley Jr Self - patient is the insured Medical (General) History Medical History History ICD Code Arthritis Cancer Cataracts Glaucoma Gout High blood pressure Stroke hemochromatosis Surgical History Surgery Date(Month/Year) knee surgery wisdom teeth extraction
--- OUTSIDE RECORDS SUMMARY | 2025-08-07 19:11 | XMS_ITS | Clinical Summary ---
Author Organization [facility] Address [address] [place] [address] Care Team Providers Care Chapter Relations Administrator Name Role Phone Mark Cornelius MD Primary Care Provider [phone] Allergies No known active allergies Medications lisinopril (PRINIVIL,ZeSTRI L) 5 MG tablet Take 5 mg by mouth daily. Active hydrochlorothiaz alexander (HYDRODIURIL) 50 MG tablet Take 50 mg by mouth daily. Active cholecalciferol (VITAMIN D3) 1000 units tablet Take 1,000 Units by mouth daily. Active multivitamin (multivitamin) Tab tablet Take 1 tablet by mouth daily. Active Misc Natural Products (GLUCOSAMINE CHONDROITIN ADV PO) Take 2 capsules by mouth nightly. Active Active Problems No known active problems Social History Tobacco Use Types Packs/Day Years [...] on file Sexual Orientation Not on file Last Filed Vital Signs Vital Sign Reading Time Taken Comments Blood Pressure 123/58 09/07/2017 1:30 PM EST Pulse 58 09/07/2017 1:30 PM EST Temperature 37.4 C (99.4 F) 09/07/2017 12:42 PM EST Respiratory Rate 12 09/07/2017 1:30 PM EST Oxygen Saturation 97% 09/07/2017 1:30 PM EST Inhaled Oxygen Concentration - - Weight - - Height - - Body Mass Index - - Plan of Treatment Health Maintenance Due Date Last Done Comments Advance Care Planning 1935 DTaP/Tdap/Td Vaccines (1 - Tdap) 12/19/1954 Pneumococcal Vaccines 50+ (1 of 1 - PCV) 12/19/1985 Zoster (Shingles) Vaccine (1 of 2) 12/19/1985 RSV Vaccine 50 years and old er and Patients (1 - 1-dose 75+ series) 12/19/2010 Influenza Vaccine 03/28/2025 COVID-19 Vaccine (1 - 2023-2 5 season) 2025 Hepatitis B Vaccines Aged Out No long er eligible based on patient's age to complete this topic Medical Devices Implanted Type Area Guest Service Host Device Identifier Shelf Expiration Date Model / Serial / Lot Iol Implanted:Qty: 1 on 09/07/2017 by Delgado Mckeon MD at [facility] Lens Left: [employer] 10/26/2019 [id number] / [id number] / Insurance [facility] MEDIC[facility] PART A & B Advance Directives * Full Code (Latest Code Status on File) Date Activated Date Inactivated Comments 09/07/2017 10:17 AM * Full Code Date Activated Date Inactivated Comments 08/24/2017 11:39 AM 09/07/2017 9:46 AM Care Teams Chapter Relations Administrator Relationship Specialty Start Date End Date Mark Cornelius MD [address] [place] [address] PCP - General 08/17/17
--- OUTSIDE RECORDS SUMMARY | 2025-08-07 19:11 | XMS_ITS | Clinical Summary ---
Author Organization [address] Address [address] [place] [address] Phone Care Team Providers Care Lay Health Advocate Name Role Phone Physician, Pcp Unknown Primary Care Provider Alaina vailable Social History Tobacco Use Types Packs/Day Years Used Date Smoking Tobacco: Never Assessed Sex and Gender Information Value Date Recorded Sex Assigned at Not on file Legal Sex Male 8:24 AM EST Gender Identity Not on file Sexual Orientation Not on file Plan of Treatment Health Maintenance Due Date Last Done Comments DTaP,Tdap,and Td Vaccines (1 - Tdap) 12/19/1954 Pneumococcal Vaccine: 50+ Ye ars (1 of 1 - PCV) 12/19/1985 Zoster Vaccines (1 of 2) 12/19/1985 RSV Immunization Adult Patie nts (1 - 1-dose 75+ series) 12/19/2010 Cholesterol Screening (Lipid Panel) 07/31/2022 Falls Risk Assessment 07/31/2022 Medicare Annual Wellness Visit 07/31/2022 Social Influencers of Health Screening 07/31/2022 Depression Screening 08/28/2024 COVID-19 Vaccine (1 - 2024-2 6 season) 2025 Influenza Vaccine (#1) 2025 HIB Vaccines Aged Out No longer eligi ble based on patient's age to complete this topic HPV Vaccines Aged Out No longer eligi ble based on patient's age to complete this topic Hepatitis A Vaccines Aged Out No long er eligible based on patient's age to complete this topic Hepatitis B Vaccines Aged Out No long er eligible based on patient's age to complete this topic IPV Vaccines Aged Out No longer eligi ble based on patient's age to complete this topic MMR Vaccines Aged Out No longer eligi ble based on patient's age to complete this topic Meningococcal ACWY Vaccine Aged Out N o longer eligible based on patient's age to complete this topic Meningococcal B Vaccine Aged Out No l onger eligible based on patient's age to complete this topic RSV Immunization Patients Un angela 20 months Aged Out No longer eligible b ased on patient's age to complete this topic Varicella Vaccines Aged Out No longer eligible based on patient's age to complete this topic Insurance [facility] MEDICARE Care Teams Lay Health Advocate Relationship Specialty Start Date End Date Physician, Pcp Unknown PCP - General 11/11/24
== END 2025-08-07 13:58 | disposition home or self-care (01) ==
PROVIDERS: PCP Internal Medicine; Visit Provider Nurse Practitioner Family
DX: T14.8XXA Other injury of unspecified body region, initial encounter (principal)

== ENCOUNTER → 2025-08-07 12:42 | Outpatient (BNVA) | payer MEDICARE, SELFPAY | PROVIDERS: PCP Internal Medicine; Visit Provider Nurse Practitioner Family | DX: S60.512A Abrasion of left hand, initial encounter (principal); S60.511A Abrasion of right hand, initial encounter; S60.812A Abrasion of left wrist, initial encounter; S60.811A Abrasion of right wrist, initial encounter; S80.211A Abrasion, right knee, initial encounter; W19.XXXA Unspecified fall, initial encounter; Y93.01 Activity, walking, marching and hiking; Y92.9 Unspecified place or not applicable | CPT/HCPCS: 99212 ==